=== PATIENT | female | born 1970 | race Caucasian/White ===

== ENCOUNTER 2018-04-03 08:22 | Day surgery (SDC) | payer BC ==
[~2018-04-03 08:22] MED LIST: LIDOCAINE 2% (SDV) 5 ML INJ
[2018-04-03] MEDS ORDERED: CEFAZOLIN 2 GM/50 ML (PMX) 50 ML IVPB (10:30)
[2018-04-03] MEDS ORDERED: MINERAL OIL LIGHT 10 ML VIAL (11:33)
[2018-04-03] MEDS ORDERED: BUPIVACAINE 0.5% (SDV) 30 ML INJ (11:37)
[2018-04-03] MEDS ORDERED: PROPOFOL 100 ML (11:40)
[2018-04-03] MEDS ORDERED: METOCLOPRAMIDE 10 MG INJ IV (12:00)
[2018-04-03] MEDS ORDERED: hydrALAzine 20 MG INJ IV (12:00)
[2018-04-03] MEDS ORDERED: KETOROLAC 30 MG INJ IV (12:00)
[2018-04-03] MEDS ORDERED: MEPERIDINE 25 MG INJ IV (12:00)
[2018-04-03] MEDS ORDERED: DIPHENHYDRAMINE 50 MG INJ IV (12:00)
[2018-04-03] MEDS ORDERED: INSULIN ASPART [NOVOLOG] 3 ML PEN SC (12:00)
[2018-04-03] MEDS ORDERED: GLUCOSE GEL 15 GRAM TUBE BUCCAL (12:00)
[2018-04-03] MEDS ORDERED: FENTAnyl 50 MCG/ML VIAL IV ×3 (12:00)
[2018-04-03] MEDS ORDERED: ONDANSETRON 4 MG INJ IV (12:00)
[2018-04-03] MEDS ORDERED: HYDROmorphONE 1 MG/5 ML IV SYRINGE IV ×3 (12:00)
[2018-04-03] MEDS ORDERED: ALBUTEROL 0.083% (NEB) 2.5 MG/3 ML AMP HHN (12:00)
[2018-04-03] MEDS ORDERED: GLUCOSE GEL 15 GRAM TUBE PO ×2 (12:00)
[2018-04-03] MEDS ORDERED: OXYCODONE/ACETAMINOPHEN (5/325) TAB PO ×2 (12:00)
[2018-04-03] MEDS ORDERED: GLUCAGON 1 MG INJ IM (12:00)
[2018-04-03] MEDS ORDERED: LABETALOL HCL 20MG INJ IV (12:00)
[2018-04-03] MEDS ORDERED: EPHEDrine SULFATE 50 MG/5 ML SYG IV (12:00)
[2018-04-03] MEDS ORDERED: DEXTROSE 50% 50 ML SYRINGE IV ×2 (12:00)
[2018-04-03] MEDS ORDERED: MIDAZOLAM 1 MG/ML 2 ML INJ IV (12:00)
[2018-04-03] MEDS ORDERED: CLINDAMYCIN 600 MG/D5W (PMX) 50 ML IVPB (12:01)
[2018-04-03] MEDS ORDERED: ACETAMINOPHEN 1000MG/100ML IV 100 ML (12:01)
[2018-04-03] MEDS ORDERED: ROCURONIUM 50 MG INJ (12:01)
[2018-04-03] MEDS ORDERED: ONDANSETRON 4 MG INJ (12:02)
[2018-04-03] MEDS ORDERED: DEXAMETHASONE 4 MG/ML 1 ML INJ (12:02)
[2018-04-03] MEDS: LIDOCAINE 1%/EPI 30 ML INJ (12:03)
[2018-04-03] MEDS: POLYMYXIN/BACITRACIN 1L IRRIG (12:04)
[2018-04-03] MEDS: MINERAL OIL LIGHT 10 ML VIAL TOP (12:04)
[2018-04-03] MEDS: THROMBIN 5000 UNIT VIAL (12:05)
[2018-04-03] MEDS ORDERED: SUGAMMADEX SODIUM 200 MG/2 ML VIAL IV (12:25)
== END 2018-04-03 14:27 | disposition home or self-care (01) ==
LOC: SDS 08:22
DX: E11.621 Type 2 diabetes mellitus with foot ulcer (principal); E11.42 Type 2 diabetes mellitus with diabetic polyneuropathy; I73.9 Peripheral vascular disease, unspecified
CPT/HCPCS: 15120; 82962